=== PATIENT | female | born 1965 | race African-American/Black ===

== ENCOUNTER 2019-01-13 07:37 | Day surgery (SDC) | payer OTHER ==
[2019-01-09 09:19] LABS: Protime INR 1.04
[2019-01-09 09:20] LABS: Basophils % 0.9 % (0-1.3); Hematocrit 39.2 % (36.0-45.0); Lymphocytes % 25.9 % (15.3-44.8); MPV 9.5 fL (7.6-11.3); RBC Red Blood Cell Count 4.11 M/uL (3.86-4.86)
[2019-01-09 09:32] LABS: BUN Blood Urea Nitrogen 10 mg/dL (7-18); Bicarbonate 28 mmol/L (21-32); Glucose Level 100 mg/dL (74-106); Potassium 3.8 mmol/L (3.5-5.1); Sodium Level 141 mmol/L (136-145)
--- NOTE | 2019-01-09 16:35 | RAD REPORT ---
EXAM DESCRIPTION: Lauren Quigley (2 Views)01/09/2019 4:28 pm CLINICAL HISTORY: Preoperative. Exam for knee surgery COMPARISON: None FINDINGS: The lungs appear clear of acute infiltrate. The heart is normal size IMPRESSION: No acute abnormalities displayed
[2019-01-13] MEDS ORDERED: CEFAZOLIN/SWI 2gm 2 GM/20 ML SYR ONE (07:57)
[2019-01-13] MEDS ORDERED: Ringers Lactate 1,000 ML IV ONE (07:57)
[2019-01-13] MEDS ORDERED: PROPOFOL 200 MG/20 ML VIAL IV ONE (08:47)
[2019-01-13] MEDS ORDERED: LIDOCAINE 2% MPF 5 ML VIAL ONE (08:47)
[2019-01-13] MEDS ORDERED: FENTANYL CITR 100 MCG/2 ML ONE (08:47)
[2019-01-13] MEDS ORDERED: MIDAZOLAM HCL 2 MG/2 ML INJ ONE (08:47)
[2019-01-13] MEDS ORDERED: BUPIVACAINE 0.25% PF 10 ML VIAL ONE (09:17)
[2019-01-13] MEDS ORDERED: KETOROLAC 30 MG/ML INJ ONE (09:34)
[2019-01-13] MEDS: HYDROMORPHONE HCL 2 MG/ML inj ONE ×4 (10:33→10:52)
--- NOTE | 2019-01-13 10:45 | P.BOP ---
Preoperative diagnosis: right knee medial meniscus tear Postoperative diagnosis: same, right knee lateral meniscus tear, right knee osteoarthritis Primary procedure: right knee arthroscopic partial medial meniscectomy Secondary procedure: right knee arthroscopic partial lateral meniscectomy Log Getter: NONE,NONE Estimated blood loss: <5 cc Specimen: none Findings: see dictation Anesthesia: General Complications: None Implants: none Fluids & blood products: per anesthesia record; TT: 37 mins @ 300 mmHg Transferred to: Recovery Room Condition: Good
[2019-01-13] MEDS: HYDROMORPHONE HCL 1 MG/ML INJ ONE ×2 (11:03→11:08)
[2019-01-13] MEDS ORDERED: ONDANSETRON 4 MG (ODT) TAB PO ONE (12:50)
[2019-01-13] MEDS ORDERED: ONDANSETRON 4 MG (ODT) TAB ONE (12:58)
[2019-01-13 14:15] VITALS: O2SAT 95
[2019-01-13 14:21] VITALS: BP 118/64; TEMP 97.5
--- NOTE | 2019-01-14 00:58 | OP ---
Date of Procedure: 01/13/2019 Surgeon: Willie Rowley MD Preoperative Diagnosis: Right knee medial meniscus tear. Postoperative Diagnoses: 1.Right knee medial meniscus tear. 2.Right knee lateral meniscus tear. 3.Right knee osteoarthritis. Procedure Performed: 1.Right knee arthroscopic partial medial meniscectomy. 2.Right knee arthroscopic partial lateral meniscectomy. Anesthesia: General LMA. Fluids: Per anesthesia record. Estimated Blood Loss: Less than 5 cc. Complications: None. Implants: None. Tourniquet Time: 37 minutes at 300 mmHg. Indication For Procedure: Ms. Alberto is a 53-year-old female who presented to my clinic with signs, symptoms, and MRI findings consistent with right knee medial meniscus tear. I discussed with the doroteo martini at length risks and benefits associated with operative and nonoperative treatment. She express ed understanding and elected to proceed with operative treatment. Description Of Procedure: After informed consent was obtained, the patient was identified in the pre operative holding area. The right lower extremity was marked. The patient was taken back to the ope rating room, transferred to the operating table in supine fashion and placed under general LMA anesth esia. The right lower extremity was then prepped and draped in usual sterile fashion. A time-out wa s initiated. Correct patient and procedure were confirmed and identified. The patient had received preoperative prophylactic antibiotics. The right lower extremity was then exsanguinated using an Esm arch. Tourniquet was inflated to 300 mmHg. Standard anteromedial and anterolateral portals were cre ated and diagnostic arthroscopy performed. The arthroscope was brought into the lateral portal, brou ght into patellofemoral compartment. 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 Any loose chondral flaps were then debride d using an arthroscopic shaver performing chondroplasty on undersurface of patella. The arthroscope was then brought in the medial compartment. There were no loose bodies noted in the medial or latera l gutters. Patient was noted to have grade 4 changes of her medial femoral condyle and grade 3 suazo es of her medial tibial plateau. She was noted to have a complex tear of the medial meniscus at the body and posterior horn. A partial medial meniscectomy was performed using meniscal biters and arthr oscopic shaver to smooth meniscal borders, which were found to be stable to probe. The arthroscope w as then brought into the intercondylar notch. Patient was noted to have an intact ACL and PCL. The arthroscope was then brought to the lateral compartment. Patient was noted to have a small complex t ear of the posterior horn of the lateral meniscus. Partial lateral meniscectomy was performed using an arthroscopic shaver to smooth meniscal borders. The lateral meniscus was found to be stable to pr obe. There were some grade 2 chondromalacia changes in the lateral tibial plateau and overall pristi ne cartilage in the lateral femoral condyle. The arthroscopic instruments were then brought back in patellofemoral joint. Shaver was brought to remove the debrided loose bodies within the joint. The arthroscopic instruments were then removed without complications. Portals were approximated using 3- 0 Monocryl. Sterile dressings were applied. Tourniquet was let down. The patient was awakened and transferred to PACU in stable condition. Postoperative Plan: She will be weightbearing as tolerated. She will follow up in the next week for wound check and she will begin physical therapy for post meniscectomy protocol. CATHI/GEOFF Voice ID: [id number] Report ID: [id number]
--- OUTSIDE RECORDS SUMMARY | 2019-01-22 19:10 | XMS REPORT ---
:1965 Author Organization [employer] Care Team Providers Name Role Phone Rowley Willie Provider Role Unavailable Allergies No Known Allergies Problems Problem Type Condition Code Onset Dates Condition Status Problem Primary osteoarthritis of right knee M17.11 Active Problem Primary osteoarthritis of left knee M17.12 Active Medications No Known Medications Results No Known Results Summary Purpose eClinicalWorks Submission
--- OUTSIDE RECORDS SUMMARY | 2019-01-22 19:10 | XMS REPORT ---
:1965 [facility] Address [address] [place] [address] Dr. Padgett [address] [place] [address] Care Team Providers Name Role Phone Unavailable Unavailable Unavailable Problems This patient has no known problems. Allergies, Adverse Reactions, Alerts This patient has no known allergies or adverse reactions. Medications This patient has no known medications.
--- OUTSIDE RECORDS SUMMARY | 2019-01-22 19:10 | XMS REPORT | Summary of Care ---
:1965 Author Organization [facility] Address [address] [place] [id number] Care Team Providers Name Role Phone Pérez Stephens MD Primary Care Provider Reason for Referral Radiology Services (STAT) Status Reason Specialty Diagnoses / Referred By Referred To Procedures Contact Contact New Request Diagnostic Diagnoses Neck pain Syed Sal, Radiology Procedures XR CERVICAL SPINE [address] [place] [address] Radiology Services (STAT) Status Reason Specialty Diagnoses / Referred By Referred To Procedures Contact Contact New Request Diagnostic Diagnoses Neck pain Syed Sal, Radiology Procedures XR CERVICAL SPINE [address] [place] [id number] Reason for Visit Reason Comments Neck Pain Auth/Cert Status Reason Specialty Diagnoses / Referred By Referred To Procedures Contact Contact [facility] [address] [place] [address] [place] [address] Encounter Details Date Type Department Care Team Description 10/31/2018 Emergency [facility] Syed Sal MD Neck pain (Primary Dx); Department [facility] Strain of neck muscle, initial encounter [address] [place] [id number] [place] [id number] [place] [address] [phone] Allergies Active Allergy Reactions Severity Noted Date Comments Meperidine Hcl Nausea and/or Vomiting 10/31/2018 documented as of this encounter (statuses as of 10/31/2018) Medications Medication Sig Dispensed Refills Start Date End Date Status sulindac (CLINORIL) 200 Take 1 Tab by 20 Tab 0 06/04/2015 Active mg tablet mouth 2 (two) times daily. acetaminophen-codeine Take 1 tablet 20 tablet 0 10/31/2018 Active (TYLENOL-CODEINE #3) by mouth every 300-30 mg 6 (six) hours tabletIndications: Neck as needed for pain, Strain of neck Pain (scale muscle, initial encounter 4-6). cyclobenzaprine 5 mg Take 1 tablet 30 tablet 0 10/31/2018 Active tabletIndications: Strain by mouth 3 of neck muscle, initial (three) times encounter daily. documented as of this encounter (statuses as of 10/31/2018) Active Problems No known active problemsdocumented as of this encounter (statuses as of 2018) Social History Tobacco Use Types Packs/Day Years Used Date Never Assessed Sex Assigned at Date Recorded Not on file Job Start Date Occupation Industry Not on file Not on file Not on file Travel History Travel Start Travel End No recent travel history available. documented as of this encounter Last Filed Vital Signs Vital Sign Reading Time Taken Comments Blood Pressure 161/98 10/31/2018 12:22 PM CDT Pulse 63 10/31/2018 12:22 PM CDT Temperature 36.8 C (98.3 F) 10/31/2018 8:57 AM CDT Respiratory Rate 16 10/31/2018 12:22 PM CDT Oxygen Saturation 95% 10/31/2018 12:22 PM CDT Inhaled Oxygen Concentration - - Weight 81.6 kg (180 lb) 10/31/2018 8:57 AM CDT Height 162.6 cm (5' 4") 10/31/2018 8:57 AM CDT Body Mass Index 30.9 10/31/2018 8:57 AM CDT documented in this encounter Discharge Instructions Syed Moscoso MD - 10/31/2018 DIAGNOSIS Diagnoses that have been ruled out: None Diagnoses that are still under consideration: None Final diagnoses: Neck pain Strain of neck muscle, initial encounter NO LIFE-THREATENING FINDINGS ON TODAY'S EXAM. PROCEDURES IN THE ER TODAY: Orders Placed This Encounter Procedures XR CERVICAL SPINE 3 VW MEDICATIONS ADMINISTERED IN THE ER TODAY: Orders Placed This Encounter Medications HYDROcodone-acetaminophen (NORCO 5) 5-325 mg tablet 1 tablet YOUR PRESCRIPTIONS AND [id number] MEDICATION RECOMMENDATIONS: Tylenol #3 SPECIAL CARE INSTRUCTIONS: Follow up with PCP Return to the ED if worsening of symptoms FOLLOW-UP RECOMMENDATIONS: RECOMMEND FOLLOW-UP WITH A PRIMARY CARE PROVIDER OR SPECIALIST IN 2-5 DAYS, ESPECIALLY IF NO IMPROVEMENT IN SYMPTOMS. TO FOLLOW-UP WITHIN THE [facility], TRY THESE OPTIONS (CLINIC APPOINTMENTS AVAILABLE ON [id number] BASIS): 1. SCHEDULE AN APPOINTMENT ONLINE AT WWW[facility] 2. OR CALL THE [facility] AT OR 3. OR CALL YOUR [facility] PHYSICIAN'S OFFICE DIRECTLY IF YOU ARE ALREADY AN ESTABLISHED [facility] PATIENT. OR, YOU MAY FOLLOW-UP WITH A PROVIDER OF YOUR CHOICE, SUCH : 1. A PHYSICIAN OF YOUR CHOICE 2. [facility], . LOCATIONS IN [facility] 3. [facility], [address] [place] [address]; RETURN TO ER FOR WORSENING OF SYMPTOMS. AttachmentsThe following attachments cannot be sent through Care Everywhere.Cervical Strain, Understanding (Guatemalan)documented in this encounter Plan of Treatment Health Maintenance Due Date Last Done Comments HEPATITIS C (HCV) SCREEN 1965 DTaP,Tdap,and Td Vaccines (1 - 05/28/1982 Tdap) PAP SMEAR 05/28/1984 MAMMOGRAM 2003 COLONOSCOPY 05/28/2013 Zoster Recombinant Vaccine 05/28/2013 (SHINGRIX) (1 of 2) INFLUENZA VACCINE (Retired 11/13/2018 version) PNEUMOCOCCAL 0-64 YEARS COMBINED Aged Out No longer eligible based on SERIES patient's age to complete this topic documented as of this encounter Procedures Procedure Name Priority Date/Time Associated Diagnosis Comments XR CERVICAL SPINE 3 STAT 10/31/2018 11:13 AM Neck pain Results for this VW CDT procedure are in the results section. NOTICE OF PRIVACY Routine 10/31/2018 8:50 AM PRACTICES CDT documented in this encounter Results XR CERVICAL SPINE 3 VW (10/31/2018 11:13 AM CDT) Specimen Impressions Performed At 1. Moderate changes of spondylosis from C3 to C7 PACS/VR/DOSE 2. Loss of normal lordosis may represent positioning or muscle spasm Narrative Performed At * * * * * * * * ORIGINAL REPORT * * * * * * * * PACS/VR/DOSE EXAM: Cervical spine 3 views HISTORY: Neck pain TECHNIQUE:AP and lateral view the cervical spine and a spot view of the odontoid process is obtained. FINDINGS:Changes of moderately severe spondylosis are seen at C3-C4, C4-C5, C5-C6 and C6-C7 in the form of disc space narrowing, endplate sclerosis and marginal osteophytes. These changes are more pronounced at C4-C5 and C6-C7. Prevertebral soft tissues are normal. Loss of normal cervical lordosis is seen. Procedure Note [facility], Radiant Results Inft User - 10/31/2018 11:19 AM CDT * * * * * * * * ORIGINAL REPORT * * * * * * * * EXAM: Cervical spine 3 views HISTORY: Neck pain TECHNIQUE:AP and lateral view the cervical spine and a spot view of the odontoid process is obtained. FINDINGS:Changes of moderately severe spondylosis are seen at C3-C4, C4-C5, C5-C6 and C6-C7 in the form of disc space narrowing, endplate sclerosis and marginal osteophytes. These changes are more pronounced at C4-C5 and C6-C7. Prevertebral soft tissues are normal. Loss of normal cervical lordosis is seen. IMPRESSION 1. Moderate changes of spondylosis from C3 to C7 2. Loss of normal lordosis may represent positioning or muscle spasm Performing Organization Address City/State/Zipcode Phone Number PACS/VR/DOSE documented in this encounter Visit Diagnoses Diagnosis Neck pain - Primary Cervicalgia Strain of neck muscle, initial encounter documented in this encounter Administered Medications Medication Order MAR Action Action Date Dose Rate Site HYDROcodone-acetaminophen Given 10/31/2018 10:55 AM CDT 1 tablet (NORCO 5) 5-325 mg tablet 1 tablet 1 tablet, Oral, ONCE, 1 dose, 10/31/18 at 1145, CORBIN documented in this encounter documented as of this encounter
== END 2019-01-13 13:08 | disposition home or self-care (01) ==
LOC: OR 07:37
PROVIDERS: ATTEND Orthopaedic Surgery Sports Medicine
PROC: 0SBC4ZZ Excision of Right Knee Joint, Percutaneous Endoscopic Approach (ICD-10-PCS; 2019-01-13)
PROC: 0SBC4ZZ Excision of Right Knee Joint, Percutaneous Endoscopic Approach (ICD-10-PCS; principal; 2019-01-13 09:00)
DX: S83.231A Complex tear of medial meniscus, current injury, right knee, initial encounter (principal); S83.271A Complex tear of lateral meniscus, current injury, right knee, initial encounter; M17.11 Unilateral primary osteoarthritis, right knee; I10 Essential (primary) hypertension; I34.1 Nonrheumatic mitral (valve) prolapse
CPT/HCPCS: 85025; 80048; 36415; 85610; 85730; 71046; 29880; J2704; J2250; J1170 ×2; J3010; J0690; J7120